=== PATIENT | male | born 1955 | race Two or more races ===

== ENCOUNTER → 2017-07-22 | Outpatient (REF) | payer MEDICARE ==
[~2017-07-22] MED LIST: NORCOTAB PO; ROBA500T PO
[2017-07-22 14:54] LABS: BASO # 0.1 10^3/uL (0.0-0.2); BASO % 1.5 % (0.0-1.0); EOS # 0.3 10^3/uL (0.0-0.50); EOS % 3.8 % (0.0-3.0); IMMATURE GRANULOCYTE % 0.3 % (0-0); LYMPH # 3.2 10^3/uL (1.5-4.5); MEAN CORPUSCULAR HEMOGLOBIN 29.3 pg (27.0-33.0); MEAN CORPUSCULAR HGB CONC 33.5 g/dl (32.0-36.5); MEAN CORPUSCULAR VOLUME 87.4 fl (80.0-96.0); MONO # 0.6 10^3/uL (0.0-0.8); MONO % 7.8 % (0.0-5.0); NEUTROPHILS # 3.6 10^3/uL (1.8-7.7); NEUTROPHILS % 45.6 % (36.0-66.0); PLATELET COUNT, AUTOMATED 235 10^3/uL (150-450); RED CELL DISTRIBUTION WIDTH 13.4 % (11.5-14.5); WHITE BLOOD COUNT 7.9 10^3/uL (4.0-10.0)
[2017-07-22 15:03] LABS: ALBUMIN/GLOBULIN RATIO 1.21 (1.00-1.93); ALKALINE PHOSPHATASE 76 U/L (45-117); ALT/SGPT 34 U/L (12-78); ANION GAP 7 MEQ/L (8-16); AST/SGOT 15 U/L (15-37); BILIRUBIN,TOTAL 0.5 MG/DL (0.2-1.0); BLOOD UREA NITROGEN 21 MG/DL (7-18); CALCIUM LEVEL 9.2 MG/DL (8.8-10.2); CARBON DIOXIDE LEVEL 27 MEQ/L (21-32); CHLORIDE LEVEL 105 MEQ/L (98-107); CREATININE FOR GFR 1.28 MG/DL (0.70-1.30); GLOMERULAR FILTRATION RATE > 60.0 (>49); GLUCOSE, FASTING 129 MG/DL (80-110); POTASSIUM SERUM 4.2 MEQ/L (3.5-5.1); SODIUM LEVEL 139 MEQ/L (136-145); TOTAL PROTEIN 7.3 GM/DL (6.4-8.2)
[2017-07-23 13:31] LABS: HEPATITIS B SURFACE ANTIBODY NEGATIVE (POSITIVE)
== END ==
LOC: M LAB REF 14:10
PROVIDERS: ATTEND Family Medicine Addiction Medicine
DX: B18.2 Chronic viral hepatitis C (principal)

== ENCOUNTER → 2017-08-25 | Outpatient (CLI) | payer OTHER ==
--- NOTE | 2017-08-25 11:38 | REP ---
Clinical: Preoperative assessment. Comparison: None. Findings: Mediastinum and cardiac silhouette are normal. Airway is patent and midline. A calcified granuloma in the left lung is consistent with chronic change. Chronic changes including biapical bullous changes are suggested. No acute consolidation, effusion, or pneumothorax. Skeletal structures demonstrate degenerative changes. Impression: No acute cardiopulmonary process or focal consolidation. Signed by Michele Barillas MD 08/25/2017 11:29 A
== END ==
LOC: M ADAMS 10:39
PROVIDERS: ATTEND Urology
DX: Z01.818 Encounter for other preprocedural examination (principal); R82.8 Abnormal findings on cytological and histological examination of urine

== ENCOUNTER → 2017-08-25 | Outpatient (REF) | payer OTHER ==
[2017-08-25 14:33] LABS: MEAN CORPUSCULAR HEMOGLOBIN 29.3 pg (27.0-33.0); MEAN CORPUSCULAR HGB CONC 33.2 g/dl (32.0-36.5); MEAN CORPUSCULAR VOLUME 88.3 fl (80.0-96.0); PLATELET COUNT, AUTOMATED 259 10^3/uL (150-450); RED CELL DISTRIBUTION WIDTH 13.2 % (11.5-14.5); WHITE BLOOD COUNT 7.9 10^3/uL (4.0-10.0)
[2017-08-25 14:38] LABS: INR 0.97
[2017-08-25 15:09] LABS: ANION GAP 7 MEQ/L (8-16); BLOOD UREA NITROGEN 19 MG/DL (7-18); CALCIUM LEVEL 9.4 MG/DL (8.8-10.2); CARBON DIOXIDE LEVEL 29 MEQ/L (21-32); CHLORIDE LEVEL 104 MEQ/L (98-107); CREATININE FOR GFR 1.16 MG/DL (0.70-1.30); GLOMERULAR FILTRATION RATE > 60.0 (>49); GLUCOSE, FASTING 132 MG/DL (80-110); POTASSIUM SERUM 4.8 MEQ/L (3.5-5.1); SODIUM LEVEL 140 MEQ/L (136-145)
== END ==
LOC: M SMT 12:20
PROVIDERS: ATTEND Urology
DX: R82.8 Abnormal findings on cytological and histological examination of urine (principal); Z01.818 Encounter for other preprocedural examination; N39.0 Urinary tract infection, site not specified

== ENCOUNTER 2017-09-05 09:16 | Day surgery (SDC) | payer OTHER ==
[~2017-09-05] VITALS: Ht 180.3 cm; Wt 83.5 kg
[~2017-09-05 09:16] MED LIST changes: +LR 1,000 ML IV ONE
[2017-09-05] MEDS ORDERED: ROCURONIUM BROMIDE 50 MG/5 ML VIAL As Ordered ONE (11:38)
[2017-09-05] MEDS ORDERED: ONDANSETRON 4MG/2ML VIAL (J2405) As Ordered ONE (11:38)
[2017-09-05] MEDS ORDERED: PROPOFOL 200 MG/20 ML VIAL As Ordered ONE (11:38)
[2017-09-05] MEDS ORDERED: LIDOCAINE 2% INJ 100 MG/5 ML SDV (FOR ANES.) As Ordered ONE (11:38)
[2017-09-05] MEDS ORDERED: MIDAZOLAM INJ 2 MG/2 ML VIAL (J2250) As Ordered ONE (11:41)
[2017-09-05] MEDS ORDERED: fentaNYL 100 MCG/2 ML INJECTION (J3010) As Ordered ONE ×2 (11:42→15:15)
[2017-09-05] MEDS ORDERED: NEOSTIGMINE 10 MG/10 ML VIAL (J2710) As Ordered ONE (11:48)
[2017-09-05] MEDS ORDERED: GLYCOPYRROLATE INJ 0.2 MG/ML 2 ML VIAL As Ordered ONE (11:48)
[2017-09-05] MEDS ORDERED: CONRAY-60 60% 50ML VIAL (Q9961) As Ordered ONE (13:30)
--- NOTE | 2017-09-05 15:08 | REP ---
RETROGRADE PYELOGRAM, THREE VIEWS: Three portable radiographs were obtained with a C-Arm. A small amount of contrast material is present in the right renal collecting system. The patient is status post bilateral ureteral stent placement. Fluoro time 36 seconds. IMPRESSION: The patient is status post bilateral ureteral stent placement. Signed by Todd Gordillo MD 09/05/2017 03:21 P
[2017-09-05] MEDS: fentaNYL 100 MCG/2 ML INJECTION (J3010) IV PRN ×4 (15:15→15:49)
[2017-09-05] MEDS: PERCOCET 5MG/325MG TAB PO PRN ×2 (15:15→16:00)
[2017-09-05] MEDS ORDERED: PERCOCET 5MG/325MG TAB As Ordered ONE (15:15)
[2017-09-05] MEDS ORDERED: LR 1,000 ML IV SCH (15:15)
[2017-09-05] MEDS ORDERED: ONDANSETRON 4MG/2ML VIAL (J2405) IV PRN (15:15)
[2017-09-05] MEDS ORDERED: PERCOCET 5MG/325MG TAB PO PRN ×2 (15:30)
[2017-09-05] MEDS: HYDROmorphone HCL 1 MG/ML SYRINGE (J1170) IV PRN ×3 (16:07→16:17)
[2017-09-05] MEDS ORDERED: oxyBUTYnin 5 MG TAB PO ONE (16:45)
--- NOTE | 2017-09-05 16:55 | ECGEPIP ---
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 Electronically Signed On 09-05-2017 16:55:25 EST by Eric Valenzuela
[2017-09-05 18:00] VITALS: BP 123/73
--- NOTE | 2017-09-08 11:32 | RO ---
DATE OF PROCEDURE: 09/05/2017 PREPROCEDURE DIAGNOSIS: Urothelial carcinoma. POSTPROCEDURE DIAGNOSIS: Urothelial carcinoma. PROCEDURE: Cystoscopy, bilateral ureteroscopy, renal pelvic washings, bilateral ureteral stent placement, random bladder biopsies. SURGEON: Dr. Michael Malin. GORE STITCHER: None. ANESTHESIA: General. OPERATIVE INDICATIONS: This is a 62-year-old male diagnosed with bladder cancer approximately 2 years ago. On subsequent surveillance, he has been found to have positive urine cytology with no identifiable tumors on imaging or on cystoscopy. He is brought to the operating room today to try to identify the source of the positive cytologies. DESCRIPTION OF PROCEDURE: The patient was brought to the operating room where general anesthesia was induced. Prophylactic antibiotics were infused. He was then placed in the dorsal lithotomy position and prepped and draped in the usual sterile fashion. A rigid cystoscope was inserted through the urethral meatus and advanced to the bladder. The bladder was then thorough examined with both a 30 and a 70 degree lens and no tumors or other notable mucosal lesions were seen. Although he did have a large bladder diverticulum on the left lateral wall. This was examined and there were notable abnormalities inside of it. At this point, an open ended ureteral catheter was inserted up into the right ureter and a renal pelvis and ureteral washing was obtained. I then advanced a wire up into the ureteral catheter and then put an access sheath up the right collecting system. I then went up the right collecting system with the ureteroscope and the right kidney and all the calices were thoroughly examined. No tumors were seen. Another washing was obtained as well. I then withdrew the ureteroscope along with the ureteral access sheath and no abnormalities or tumors were seen within the right ureter. At this point, I utilized the previously placed wire to advance the #6 Lao x 22-33 cm JJ ureteral stent up through the right collecting system. The wire was then removed and there were adequate curls of stent in the right renal pelvis and in the bladder. At this point, I then utilized an open ureteral catheter to obtain a left renal pelvic and ureteral washing. This was sent for cytology. I then advanced a wire up the left collecting and with an access sheath. With the access sheath I then put the uteroscope in the left kidney and all the calices were examined. No abnormalities were seen. I obtained another washing at this point for cytology. I then examined the proximal ureter and withdrew the ureteral access sheath and no tumors were seen within the ureter. At this point, I utilized the previously placed wire to advance the #6-Lao by 22-33 cm JJ ureteral stent up the left collecting system. After that was done, I then inserted the cystoscope and obtained several random bladder biopsies from the anterior, posterior and both lateral palomares of the bladder. All these were sent for pathology. After that was done I used the Bugbee electrode to cauterize these areas of that are biopsied for adequate hemostasis. Once done, there was no bleeding seen. The bladder was emptied of all fluid and this marked the conclusion of the procedure. The cystoscope was then removed. After emptying the bladder, the patient then was awakened from anesthesia, taken out of the dorsal lithotomy position and transferred to the recovery room in stable condition. ESTIMATED BLOOD LOSS: Minimal. COMPLICATIONS: None. SPECIMENS: Right renal pelvis washings to cytology, left renal pelvic washings to cytology, bladder biopsies. PLAN: The patient will followup in the clinic in about a week or two to discuss pathology results and remove the stents. RAMIREZ
== END 2017-09-05 18:15 | disposition home or self-care (01) ==
LOC: M SDC 09:16
PROVIDERS: ATTEND Urology
DX: C67.9 Malignant neoplasm of bladder, unspecified (principal); I10 Essential (primary) hypertension
CPT/HCPCS: 52204; 52332; 74420; 88108; 88305; 93005; C2617

== ENCOUNTER → 2017-09-16 | Outpatient (REF) | payer OTHER, MEDICAID ==
[~2017-09-16] MED LIST changes: -LR 1,000 ML IV ONE
== END ==
LOC: M SMT 14:16
PROVIDERS: ATTEND Urology
DX: R30.0 Dysuria (principal)

== ENCOUNTER → 2017-10-21 | Outpatient (CLI) | payer OTHER, MEDICAID ==
[2017-10-21 10:20] LABS: HEMATOCRIT 46.5 % (42.0-52.0); HEMOGLOBIN 15.7 g/dl (14.0-18.0); MEAN CORPUSCULAR HEMOGLOBIN 29.3 pg (27.0-33.0); MEAN CORPUSCULAR HGB CONC 33.8 g/dl (32.0-36.5); MEAN CORPUSCULAR VOLUME 86.8 fl (80.0-96.0); PLATELET COUNT, AUTOMATED 264 10^3/uL (150-450); RED BLOOD COUNT 5.36 10^6/uL (4.30-6.10); RED CELL DISTRIBUTION WIDTH 12.9 % (11.5-14.5); WHITE BLOOD COUNT 9.2 10^3/uL (4.0-10.0)
[2017-10-21 10:22] LABS: APPEARANCE, URINE CLEAR (CLEAR); BACTERIA, URINE AUTO NEGATIVE (NEGATIVE); BILIRUBIN, URINE AUTO NEGATIVE (NEGATIVE); BLOOD, URINE BLOOD NEGATIVE (NEGATIVE); COLOR, URINE STRAW (YELLOW); GLUCOSE, URINE (UA) AUTO NEGATIVE (NEGATIVE); KETONE, URINE AUTO NEGATIVE (NEGATIVE); LEUKOCYTE ESTERASE, URINE AUTO TRACE (NEGATIVE); NITRITE, URINE AUTO NEGATIVE (NEGATIVE); PROTEIN, URINE AUTO NEGATIVE (NEGATIVE); RBC, URINE AUTO 0 /HPF (0-3); SPECIFIC GRAVITY URINE AUTO 1.006 (1.002-1.035); SQUAMOUS EPITHELIAL CELL UR AU 0 /HPF (0-6); UROBILINOGEN, URINE AUTO 0.2 mg/dL (0.0-2.0); WBC, URINE AUTO 2 /HPF (0-3)
[2017-10-21 10:42] LABS: ALBUMIN 3.9 GM/DL (3.2-5.2); ALBUMIN/GLOBULIN RATIO 1.08 (1.00-1.93); ALKALINE PHOSPHATASE 94 U/L (45-117); ALT/SGPT 27 U/L (12-78); ANION GAP 7 MEQ/L (8-16); AST/SGOT 15 U/L (7-37); BILIRUBIN,TOTAL 0.3 MG/DL (0.2-1.0); BLOOD UREA NITROGEN 20 MG/DL (7-18); CALCIUM LEVEL 9.7 MG/DL (8.8-10.2); CARBON DIOXIDE LEVEL 27 MEQ/L (21-32); CHLORIDE LEVEL 106 MEQ/L (98-107); CREATININE FOR GFR 1.12 MG/DL (0.70-1.30); GLOMERULAR FILTRATION RATE > 60.0 (>49); GLUCOSE, FASTING 148 MG/DL (70-100); POTASSIUM SERUM 4.4 MEQ/L (3.5-5.1); SODIUM LEVEL 140 MEQ/L (136-145); TOTAL PROTEIN 7.5 GM/DL (6.4-8.2)
== END ==
LOC: M LAB 09:33
DX: C67.9 Malignant neoplasm of bladder, unspecified (principal)
CPT/HCPCS: 80053

== ENCOUNTER → 2017-10-24 | Outpatient (CLI) | payer OTHER ==
[~2017-10-24] MED LIST changes: +ISOVUE-370 76% 100ML VIAL (Q9967) As Ordered; -NORCOTAB PO; -ROBA500T PO
== END ==
LOC: M RAD 10:01
DX: I73.9 Peripheral vascular disease, unspecified (principal); I71.4 Abdominal aortic aneurysm, without rupture; I77.1 Stricture of artery; N32.3 Diverticulum of bladder; K40.90 Unilateral inguinal hernia, without obstruction or gangrene, not specified as recurrent; K76.0 Fatty (change of) liver, not elsewhere classified
CPT/HCPCS: Q9967

== ENCOUNTER → 2017-12-16 | Outpatient (REF) | payer OTHER, MEDICAID | LOC: M SMT 12:56 | DX: C67.9 Malignant neoplasm of bladder, unspecified (principal) ==

== ENCOUNTER → 2018-02-25 | Outpatient (REF) | LOC: M SMT 10:06 | DX: M54.5 Low back pain (principal) ==

== ENCOUNTER → 2018-03-10 | Outpatient (CLI) | payer OTHER, MEDICAID | LOC: M SMT 08:56 | DX: M25.511 Pain in right shoulder (principal); M25.512 Pain in left shoulder | CPT/HCPCS: 73030 ==

== ENCOUNTER → 2018-04-28 | Outpatient (REF) | payer OTHER, MEDICAID | LOC: M SMT 13:08 | DX: C67.9 Malignant neoplasm of bladder, unspecified (principal) ==

== ENCOUNTER → 2018-05-25 | Outpatient (CLI) | payer OTHER | LOC: M RAD 07:21 | DX: I73.9 Peripheral vascular disease, unspecified (principal); I71.4 Abdominal aortic aneurysm, without rupture | CPT/HCPCS: 76775 ==

== ENCOUNTER → 2018-07-20 | Day surgery (SDC) | payer OTHER ==
[~2018-07-20] MED LIST changes: -ISOVUE-370 76% 100ML VIAL (Q9967) As Ordered; +LR 1,000 ML IV
== END | disposition home or self-care (01) ==
LOC: M SDC 10:03
DX: M25.512 Pain in left shoulder (principal); Z53.09 Procedure and treatment not carried out because of other contraindication; Z79.01 Long term (current) use of anticoagulants

== ENCOUNTER → 2018-07-28 | Outpatient (REF) | payer OTHER | LOC: M SMT 13:02 | DX: C67.9 Malignant neoplasm of bladder, unspecified (principal) | CPT/HCPCS: 88108 ==

== ENCOUNTER → 2018-08-24 | Outpatient (CLI) | payer OTHER ==
[2018-08-24 18:15] LABS: ALBUMIN/GLOBULIN RATIO 1.14 (1.00-1.93); ALKALINE PHOSPHATASE 79 U/L (45-117); ALT/SGPT 29 U/L (12-78); ANION GAP 8 MEQ/L (8-16); APPEARANCE, URINE CLEAR (CLEAR); AST/SGOT 15 U/L (7-37); BACTERIA, URINE AUTO NEGATIVE (NEGATIVE); BILIRUBIN, URINE AUTO NEGATIVE (NEGATIVE); BILIRUBIN,TOTAL 0.6 MG/DL (0.2-1.0); BLOOD UREA NITROGEN 23 MG/DL (7-18); BLOOD, URINE BLOOD NEGATIVE (NEGATIVE); CALCIUM LEVEL 9.1 MG/DL (8.8-10.2); CARBON DIOXIDE LEVEL 25 MEQ/L (21-32); CHLORIDE LEVEL 105 MEQ/L (98-107); COLOR, URINE YELLOW (YELLOW); CREATININE FOR GFR 1.36 MG/DL (0.70-1.30); GLOMERULAR FILTRATION RATE 56.2 (>49); GLUCOSE, FASTING 109 MG/DL (70-100); GLUCOSE, URINE (UA) AUTO NEGATIVE (NEGATIVE); KETONE, URINE AUTO NEGATIVE (NEGATIVE); LEUKOCYTE ESTERASE, URINE AUTO NEGATIVE (NEGATIVE); MUCUS, URINE SMALL (NEGATIVE); NITRITE, URINE AUTO NEGATIVE (NEGATIVE); PROTEIN, URINE AUTO NEGATIVE (NEGATIVE); RBC, URINE AUTO 1 /HPF (0-3); SODIUM LEVEL 138 MEQ/L (136-145); SPECIFIC GRAVITY URINE AUTO 1.015 (1.002-1.035); SQUAMOUS EPITHELIAL CELL UR AU 0 /HPF (0-6); TOTAL PROTEIN 7.5 GM/DL (6.4-8.2); UROBILINOGEN, URINE AUTO 0.2 mg/dL (0.0-2.0); WBC, URINE AUTO 1 /HPF (0-3)
[2018-08-24 18:23] LABS: HEMATOCRIT 49.6 % (42.0-52.0); HEMOGLOBIN 17.3 g/dl (13.5-17.5); MEAN CORPUSCULAR HEMOGLOBIN 29.5 pg (27.0-33.0); MEAN CORPUSCULAR HGB CONC 34.9 g/dl (32.0-36.5); MEAN CORPUSCULAR VOLUME 84.5 fl (80.0-96.0); PLATELET COUNT, AUTOMATED 275 10^3/uL (150-450); RED BLOOD COUNT 5.87 10^6/uL (4.30-6.10); RED CELL DISTRIBUTION WIDTH 13.1 % (11.5-14.5); WHITE BLOOD COUNT 8.2 10^3/uL (4.0-10.0)
== END ==
LOC: M SMT 15:04
DX: C67.9 Malignant neoplasm of bladder, unspecified (principal)
CPT/HCPCS: 80053

== ENCOUNTER 2018-08-25 15:48 | Emergency (ER) | payer OTHER | END 2018-08-25 17:09 | disposition home or self-care (01) | LOC: M ED 15:48 | DX: I10 Essential (primary) hypertension (principal); G44.009 Cluster headache syndrome, unspecified, not intractable; Z85.51 Personal history of malignant neoplasm of bladder; Z79.899 Other long term (current) drug therapy | CPT/HCPCS: 70450 ==

== ENCOUNTER → 2018-10-19 | Outpatient (REF) | payer OTHER ==
[~2018-10-19] MED LIST changes: +AMLO10TA5 PO; +AMLO5TAB6 PO; -LR 1,000 ML IV; +NORCOTAB PO; +PLAV1TAB2 PO; +ROBA500T PO
== END ==
LOC: M SMT 12:54
PROVIDERS: ATTEND Urology
DX: C67.9 Malignant neoplasm of bladder, unspecified (principal)

== ENCOUNTER → 2019-03-23 | Outpatient (REF) | payer OTHER ==
[~2019-03-23] MED LIST changes: +HYDR-3715 PO; -NORCOTAB PO
== END ==
LOC: M SMT 16:58
PROVIDERS: ATTEND Urology
DX: R82.8 Abnormal findings on cytological and histological examination of urine (principal); C67.9 Malignant neoplasm of bladder, unspecified

== ENCOUNTER → 2019-04-08 | Outpatient (REF) | payer OTHER ==
[2019-04-08 13:25] LABS: HEMATOCRIT 47.5 % (42.0-52.0); HEMOGLOBIN 15.8 g/dl (13.5-17.5); MEAN CORPUSCULAR HEMOGLOBIN 28.8 pg (27.0-33.0); MEAN CORPUSCULAR HGB CONC 33.3 g/dl (32.0-36.5); MEAN CORPUSCULAR VOLUME 86.5 fl (80.0-96.0); PLATELET COUNT, AUTOMATED 248 10^3/uL (150-450); RED BLOOD COUNT 5.49 10^6/uL (4.30-6.10); WHITE BLOOD COUNT 8.6 10^3/uL (4.0-10.0)
[2019-04-08 13:46] LABS: ALBUMIN 3.9 GM/DL (3.2-5.2); BILIRUBIN,TOTAL 0.2 MG/DL (0.2-1.0); CALCIUM LEVEL 9.5 MG/DL (8.8-10.2); CREATININE FOR GFR 1.89 MG/DL (0.70-1.30); GLOMERULAR FILTRATION RATE 38.4 (>49); POTASSIUM SERUM 4.4 MEQ/L (3.5-5.1); TOTAL PROTEIN 7.4 GM/DL (6.4-8.2)
[2019-04-08 20:18] LABS: APPEARANCE, URINE CLEAR (CLEAR); BACTERIA, URINE AUTO NEGATIVE (NEGATIVE); BILIRUBIN, URINE AUTO NEGATIVE (NEGATIVE); BLOOD, URINE BLOOD NEGATIVE (NEGATIVE); COLOR, URINE YELLOW (YELLOW); GLUCOSE, URINE (UA) AUTO NEGATIVE (NEGATIVE); KETONE, URINE AUTO NEGATIVE (NEGATIVE); LEUKOCYTE ESTERASE, URINE AUTO NEGATIVE (NEGATIVE); MUCUS, URINE SMALL (NEGATIVE); NITRITE, URINE AUTO NEGATIVE (NEGATIVE); PROTEIN, URINE AUTO NEGATIVE (NEGATIVE); RBC, URINE AUTO 0 /HPF (0-3); SPECIFIC GRAVITY URINE AUTO 1.018 (1.002-1.035); SQUAMOUS EPITHELIAL CELL UR AU 0 /HPF (0-6); UROBILINOGEN, URINE AUTO 0.2 mg/dL (0.0-2.0); WBC, URINE AUTO 0 /HPF (0-3)
== END ==
LOC: M SFHCADAM 08:10
PROVIDERS: ATTEND Urology
DX: C67.9 Malignant neoplasm of bladder, unspecified (principal)

== ENCOUNTER → 2019-04-22 | Outpatient (REF) | payer OTHER ==
[2019-04-22 13:08] LABS: APPEARANCE, URINE CLEAR (CLEAR); BACTERIA, URINE AUTO NEGATIVE (NEGATIVE); BILIRUBIN, URINE AUTO NEGATIVE (NEGATIVE); BLOOD, URINE BLOOD NEGATIVE (NEGATIVE); COLOR, URINE YELLOW (YELLOW); GLUCOSE, URINE (UA) AUTO NEGATIVE (NEGATIVE); KETONE, URINE AUTO NEGATIVE (NEGATIVE); LEUKOCYTE ESTERASE, URINE AUTO NEGATIVE (NEGATIVE); NITRITE, URINE AUTO NEGATIVE (NEGATIVE); PROTEIN, URINE AUTO NEGATIVE (NEGATIVE); RBC, URINE AUTO 1 /HPF (0-3); SPECIFIC GRAVITY URINE AUTO 1.018 (1.002-1.035); SQUAMOUS EPITHELIAL CELL UR AU 0 /HPF (0-6); UROBILINOGEN, URINE AUTO 0.2 mg/dL (0.0-2.0); WBC, URINE AUTO 3 /HPF (0-3)
== END ==
LOC: M SFHCADAM 07:55
PROVIDERS: ATTEND Urology
DX: C67.9 Malignant neoplasm of bladder, unspecified (principal)

== ENCOUNTER → 2019-04-28 | Outpatient (REF) | payer OTHER ==
[2019-04-28 12:56] LABS: APPEARANCE, URINE CLEAR (CLEAR); BACTERIA, URINE AUTO NEGATIVE (NEGATIVE); BILIRUBIN, URINE AUTO NEGATIVE (NEGATIVE); BLOOD, URINE BLOOD NEGATIVE (NEGATIVE); COLOR, URINE YELLOW (YELLOW); GLUCOSE, URINE (UA) AUTO NEGATIVE (NEGATIVE); KETONE, URINE AUTO NEGATIVE (NEGATIVE); LEUKOCYTE ESTERASE, URINE AUTO TRACE (NEGATIVE); NITRITE, URINE AUTO NEGATIVE (NEGATIVE); PROTEIN, URINE AUTO NEGATIVE (NEGATIVE); RBC, URINE AUTO 1 /HPF (0-3); SPECIFIC GRAVITY URINE AUTO 1.016 (1.002-1.035); SQUAMOUS EPITHELIAL CELL UR AU 1 /HPF (0-6); UROBILINOGEN, URINE AUTO 0.2 mg/dL (0.0-2.0); WBC, URINE AUTO 15 /HPF (0-3)
== END ==
LOC: M SFHCADAM 09:24
PROVIDERS: ATTEND Urology
DX: C67.9 Malignant neoplasm of bladder, unspecified (principal)

== ENCOUNTER → 2019-06-01 | Outpatient (REF) | payer MEDICARE, OTHER | LOC: M SMT 18:53 | PROVIDERS: ATTEND Urology | DX: C67.9 Malignant neoplasm of bladder, unspecified (principal) ==

== ENCOUNTER → 2019-06-08 | Outpatient (REF) | payer OTHER ==
[2019-06-08 13:59] LABS: BASO # 0.1 10^3/uL (0.0-0.2); BASO % 1.4 % (0.0-1.0); EOS # 0.4 10^3/uL (0.0-0.5); EOS % 4.4 % (0.0-3.0); HEMATOCRIT 48.8 % (42.0-52.0); HEMOGLOBIN 16.7 g/dl (13.5-17.5); LYMPH # 2.8 10^3/uL (1.5-5.0); LYMPH % 32.9 % (24.0-44.0); MEAN CORPUSCULAR HEMOGLOBIN 29.7 pg (27.0-33.0); MEAN CORPUSCULAR HGB CONC 34.2 g/dl (32.0-36.5); MEAN CORPUSCULAR VOLUME 86.8 fl (80.0-96.0); MONO # 0.6 10^3/uL (0.0-0.8); MONO % 6.9 % (0.0-5.0); NEUTROPHILS # 4.6 10^3/uL (1.5-8.5); PLATELET COUNT, AUTOMATED 261 10^3/uL (150-450); RED BLOOD COUNT 5.62 10^6/uL (4.30-6.10); WHITE BLOOD COUNT 8.5 10^3/uL (4.0-10.0)
[2019-06-08 14:11] LABS: BILIRUBIN,TOTAL 0.3 MG/DL (0.2-1.0); CALCIUM LEVEL 9.8 MG/DL (8.8-10.2); CHOLESTEROL RISK RATIO 7.62 (<5); CREATININE FOR GFR 1.59 MG/DL (0.70-1.30); GLOMERULAR FILTRATION RATE 46.7 (>49); HEMOGLOBIN A1c 6.1 %; POTASSIUM SERUM 4.9 MEQ/L (3.5-5.1); THYROID STIMULATING HORMONE 1.45 uIU/ML (0.358-3.740); TOTAL PROTEIN 7.3 GM/DL (6.4-8.2)
== END ==
LOC: M LAB REF 13:27
PROVIDERS: ATTEND Family Medicine Addiction Medicine
DX: Z00.00 Encounter for general adult medical examination without abnormal findings (principal); I10 Essential (primary) hypertension

== ENCOUNTER → 2019-06-08 | Outpatient (CLI) | payer MEDICARE, OTHER ==
--- NOTE | 2019-06-08 09:10 | REP ---
ULTRASOUND ABDOMINAL AORTA: Real-time sonographic evaluation of the abdominal aorta performed. There is mild aneurysmal dilatation of the distal abdominal aorta. Maximum AP diameter distally is 3.6 cm and transverse 4.6 cm. Prior maximum AP diameter was 3.3 cm. More proximally maximum AP diameter of the abdominal aorta is 2.3-2.4 cm. Common iliac artery is normal in caliber both measuring 9 mm in AP dimension. A fusiform dilatation extends for a length of approximately 5 cm. IMPRESSION: Possible slight increase in size by mild fusiform distal abdominal aortic aneurysm, maximum diameter is 3.6 cm, previously 3.3 cm. Electronically Signed by Teo Garcia MD 06/09/2019 10:47 A
== END ==
LOC: M RAD 06:51
PROVIDERS: ATTEND Surgery
DX: I71.4 Abdominal aortic aneurysm, without rupture (principal)

== ENCOUNTER → 2019-07-02 | Outpatient (CLI) | payer MEDICARE, OTHER ==
[~2019-07-02] MED LIST changes: +ISOVUE-370 76% 100ML VIAL (Q9967) As Ordered ONE
--- NOTE | 2019-07-02 20:13 | REP ---
CT ANGIOGRAM ABDOMINAL AORTA AND BILATERAL LOWER EXTREMITIES: COMPARISON: 10/24/2017 TECHNIQUE: Axial imaging obtained from just above the diaphragms through the ankles following the intravenous administration of 100 mL of Isovue-370. Sagittal, coronal and 3D MIP reconstruction images are performed. Once again there is fusiform aneurysmal dilatation with tortuosity of the infrarenal abdominal aorta, maximum AP diameter is approximately 3.3 cm, unchanged since the prior study. There is moderate to large amount of eccentric intraluminal thrombus and plaque which appears similar to the prior exam. Celiac and superior mesenteric arteries are widely patent. However, the inferior mesenteric artery is occluded which is a new finding. There is narrowing of the origin of the main right renal artery, estimated to be 70 to 80%, probably slightly worse than on the prior study. There is new high grade stenosis at the origin of the main left renal artery. Since the prior study there has been placement of a right common iliac artery stent. A segment of the stent does not opacity with contrast and appears occluded focally. There is contrast in the more proximal and the more distal ends of the stent. Moderate diffuse narrowing of the right external iliac artery is unchanged. Mild plaquing and narrowing of the right common femoral artery is stable. There is no stenosis of the right superficial femoral or popliteal arteries. The trifurcation vessels are patent in the right calf and there is three vessel runoff into the right foot. On the left there is again partially calcified plaque in the common iliac artery with 50% narrowing unchanged. The left external iliac artery is widely patent. There is mild plaquing and narrowing of the left common femoral artery. There is minor plaquing of the left popliteal artery with no stenosis of superficial femoral or popliteal arteries. Trifurcation vessels are patent in the left calf and there is three vessel runoff into the left foot. There is a 6 mm nodule in the left lung base, which is stable compared to the prior study. A few small cysts are seen of the left kidney. There is no hydronephrosis and the other abdominal organs appear unremarkable. There is no adenopathy, free air or free fluid. No bowel wall thickening or appendiceal abnormality is seen. There is a left bladder diverticulum. There is a small right inguinal hernia containing fat. IMPRESSION: New occlusion of the inferior mesenteric artery. New high grade stenosis at the origin of the main left renal artery. There is approximately 70 to 80% stenosis at the origin of the main right renal artery. There is no change in the fusiform aneurysm of the infrarenal abdominal aorta with moderate eccentric intraluminal thrombus and plaque. There is a right common iliac artery stent which appears to be focally occluded in its mid aspect with contrast opacification both proximal and distal to that within the stent. There is no change in the [place] arteries distal to that in the right lower extremity and no change in the [place] left iliac and lower extremity arterial system as discussed in detail above. Electronically Signed by Teo Garcia MD 07/05/2019 11:22 P
== END ==
LOC: M RAD 14:06
PROVIDERS: ATTEND Surgery
DX: I70.301 Unspecified atherosclerosis of unspecified type of bypass graft(s) of the extremities, right leg (principal); I70.1 Atherosclerosis of renal artery; I70.202 Unspecified atherosclerosis of native arteries of extremities, left leg; K55.1 Chronic vascular disorders of intestine; I71.4 Abdominal aortic aneurysm, without rupture; R91.1 Solitary pulmonary nodule; N28.1 Cyst of kidney, acquired; N32.3 Diverticulum of bladder; K40.90 Unilateral inguinal hernia, without obstruction or gangrene, not specified as recurrent
CPT/HCPCS: 75635; Q9967

== ENCOUNTER → 2019-07-15 | Outpatient (REF) | payer MEDICARE, OTHER ==
[~2019-07-15] MED LIST changes: -ISOVUE-370 76% 100ML VIAL (Q9967) As Ordered ONE
[2019-07-15 13:46] LABS: ALBUMIN 3.8 GM/DL (3.2-5.2); BILIRUBIN,TOTAL 0.2 MG/DL (0.2-1.0); CALCIUM LEVEL 9.9 MG/DL (8.8-10.2); CREATININE FOR GFR 1.57 MG/DL (0.70-1.30); GLOMERULAR FILTRATION RATE 47.4 (>49); POTASSIUM SERUM 4.9 MEQ/L (3.5-5.1); TOTAL PROTEIN 7.3 GM/DL (6.4-8.2)
== END ==
LOC: M LAB REF 12:29
PROVIDERS: ATTEND Nurse Practitioner Family
DX: R79.89 Other specified abnormal findings of blood chemistry (principal)

== ENCOUNTER → 2019-08-03 | Outpatient (REF) | payer MEDICARE, MEDICAID ==
[2019-08-03 16:00] LABS: BASO # 0.2 10^3/uL (0.0-0.2); BASO % 1.6 % (0.0-1.0); EOS # 0.4 10^3/uL (0.0-0.5); HEMATOCRIT 47.7 % (42.0-52.0); HEMOGLOBIN 15.9 g/dl (13.5-17.5); LYMPH # 2.3 10^3/uL (1.5-5.0); LYMPH % 24.4 % (24.0-44.0); MEAN CORPUSCULAR HEMOGLOBIN 29.1 pg (27.0-33.0); MEAN CORPUSCULAR HGB CONC 33.3 g/dl (32.0-36.5); MEAN CORPUSCULAR VOLUME 87.4 fl (80.0-96.0); MONO # 0.6 10^3/uL (0.0-0.8); MONO % 6.4 % (0.0-5.0); NEUTROPHILS % 63.3 % (36.0-66.0); PLATELET COUNT, AUTOMATED 260 10^3/uL (150-450); RED BLOOD COUNT 5.46 10^6/uL (4.30-6.10); WHITE BLOOD COUNT 9.4 10^3/uL (4.0-10.0)
[2019-08-03 16:13] LABS: INR 1.03; PROTHROMBIN TIME 13.3 SECONDS (11.8-14.0)
[2019-08-03 16:14] LABS: PARTIAL THROMBOPLASTIN TIME 32.5 SECONDS (25.0-38.4)
[2019-08-03 16:17] LABS: BILIRUBIN,TOTAL 0.2 MG/DL (0.2-1.0); CALCIUM LEVEL 9.6 MG/DL (8.8-10.2); CREATININE FOR GFR 1.4 MG/DL (0.70-1.30); GLOMERULAR FILTRATION RATE 54.1 (>49); POTASSIUM SERUM 4.9 MEQ/L (3.5-5.1); TOTAL PROTEIN 7.5 GM/DL (6.4-8.2)
== END ==
LOC: M LAB REF 14:59
PROVIDERS: ATTEND Nurse Practitioner Adult Health
DX: Z78.9 Other specified health status (principal); Z79.01 Long term (current) use of anticoagulants

== ENCOUNTER → 2019-09-01 | Outpatient (CLI) | payer MEDICARE ==
--- NOTE | 2019-09-01 10:57 | REP ---
RENAL ULTRASOUND: Real-time sonographic evaluation of the kidneys performed and demonstrates right kidney to be mildly larger than left. Right kidney measures 12.0 x 5.3 x 4.9 cm and left kidney 10.4 x 3.7 x 4.1 cm. There is no hydronephrosis bilaterally. There appear to be several subcentimeter cysts in the lower pole of the left kidney with a cyst with the largest cyst 1.1 x 0.9 x 1.1 cm at that location. IMPRESSION: Small cysts lower pole left kidney. No hydronephrosis. Electronically Signed by Teo Garcia MD 09/01/2019 11:37 A
--- NOTE | 2019-09-01 11:03 | REP ---
URINARY BLADDER ULTRASOUND: Real-time sonographic evaluation of the urinary bladder performed. There is moderate distension of the urinary bladder, measuring 10.8 x 8.6 x 6.2 cm for a total volume of 376 mL. No mass or calculus is seen. Mild postvoid residual is noted at 24 mL which is 6% of the original volume. There are bilateral ureteral jets in the urinary bladder with Doppler color evaluation. A diverticulum is noted at the left base of the bladder IMPRESSION: No evidence of bladder mass or calculus. Mild postvoid residual. Electronically Signed by Teo Garcia MD 09/01/2019 11:37 A
== END ==
LOC: M RAD 09:31
PROVIDERS: ATTEND Internal Medicine Nephrology
DX: I12.9 Hypertensive chronic kidney disease with stage 1 through stage 4 chronic kidney disease, or unspecified chronic kidney disease (principal); N18.3 Chronic kidney disease, stage 3 (moderate)